=== PATIENT | male | born 1980 | race Caucasian/White ===

== ENCOUNTER 2024-01-18 22:12 | Emergency (ER) | payer OTHER, SELFPAY ==
[2024-01-18 22:21] VITALS: BP 138/93; PULSE 105; RESP 20; TEMP 36.4; O2SAT 99; BMI 32.8
--- NOTE | 2024-01-18 22:47 | XR_ITS ---
Final Report [facility] Patient ID:?[id number] Site Patient ID:?[id number]. Site :?[id number] Study:?XRay Chest 2V-01/18/2024 11:11:50 PM Ordering Physician:MUSHTAQ Final Report: INDICATION: Shortness of breath. TECHNIQUE: Chest 2 views. COMPARISON: October 12, 2019. FINDINGS: Cardiovascular and mediastinum: Heart size and vasculature are normal in caliber and appearance. Lungs and pleural spaces: Lungs are clear. No sign of infiltrate or mass. No sign of pleural effusion. No pneumothorax. Bones and soft tissues: No significant findings. IMPRESSION: No acute findings and no significant changes from the prior exam. Dictated by Lauro Hector MD @ 01/18/2024 11:19:40 PM (Electronic Signature)
--- NOTE | 2024-01-18 23:01 | ED_ITS ---
HPI - Chest Pain General Date Seen: 01/18/24 <Usmangadiel Plummer - Last Filed: 01/19/24 00:52> Chief Complaint: Chest Pain <Usman Plummer DO - Last Filed: 01/19/24 00:52> Stated Complaint: Short of breath, chest pain <Usman Roberto Elian DO - Last Filed: 01/19/24 00:52> Time Seen by Provider: 01/18/24 22:21 <Usman Plummer DO - Last Filed: 01/19/24 00:52> Source: patient <Usman Plummer DO - Last Filed: 01/19/24 00:52> Mode of arrival: ambulatory <Usman Plummer - Last Filed: 01/19/24 00:52> Limitations: no limitations <Usman Plummer DO - Last Filed: 01/19/24 00:52> History of Present Illness HPI narrative: Patient is a 43-year-old male presenting to the emergency department for chest pain and shortness of breath. He states symptoms started a couple days ago shortness of breath and shortness of breath seems to be getting worse the then started developing some midsternal chest pain. Says it felt dull in sensation. He thought it was heartburn so he took some antacids. Does but hour prior to my conversation with him he states shortly prior to me entering the room symptoms improved significantly now the pain is a 2/10. States he is not sure if he has had symptoms like this before. He is thinking is part of the to do with his anxiety as he is feeling very anxious right now and has been all day. Is no aware of any sick contacts. Denies fevers, chills, weakness, nu mbness, abdominal pain, headache, lightheadedness, dizziness, abdominal pain. Denies any other medical problems. Is a smoker but is trying to quit. No other heart or lung disorders. He is currently taking wygovy for weight loss start this 4 weeks ago. <Usman Plummer DO - Last Filed: 01/19/24 00:52> Related Data Home Medications: Home Medications Medication Instructions Recorded Confirmed citalopram .ROUTE 01/18/24 dextroamphetamine-amphetamine ER 1 cap PO BID 01/18/24 01/18/24 10 mg 24hr capsule,extend release (Adderall XR) zolpidem 10 mg tablet 10 mg PO QPM 01/18/24 01/18/24 <Usman Plummer DO - Last Filed: 01/19/24 00:52> Allergies/Adverse Reactions: Allergies Allergy/AdvReac Type Severity Reaction Status Date / Time No Known Drug Allergies Allergy Verified 01/18/24 22:26 <Usman Plummer DO - Last Filed: 01/19/24 00:52> Review of Systems Status of ROS Reports: 10 or more systems reviewed and unremarkable except as noted in History and below <Usman Plummer DO - Last Filed: 01/19/24 00:52> Exam Narrative Exam Narrative: Const: Well-nourished, Well-developed, in mild distress Eyes: PERRL, no conjunctival injection, and symmetrical lids HENT: Atraumatic external nose and ears. Moist mucous membranes. Neck: Symmetric, trachea midline, No thyromegaly. CVS: Tachycardic, No murmurs or gallops. Peripheral pulses 2+ and equal in all extremities RESP: Unlabored respiratory effort. Clear to auscultation bilaterally. GI: Nontender/Nondistended, No rebound or guarding. MSK:Extremities w/o deformity, Normal Active ROM Skin: Warm, Dry. No rashes or lesions. Neuro: Normal Muscle tone, No focal neurological deficits. Psych: Awake, Alert, & Oriented x3. Appropriate mood and affect. <Usman Plummer DO - Last Filed: 01/19/24 00:52> Const Vital Signs, click to edit/add: Vital Signs - 24 hr 01/18/24 22:21 Temperature 97.6 F Pulse Rate [Pulse Oximeter] 105 H Respiratory Rate 20 Blood Pressure [Right Upper Arm] 138/93 H Pulse Oximetry 99 Oxygen Delivery Method Room Air <Usman Plummer DO - Last Filed: 01/19/24 00:52> Vital Signs - 24 hr 01/18/24 22:21 Temperature 97.6 F Pulse Rate [Pulse Oximeter] 105 H Respiratory Rate 20 Blood Pressure [Right Upper Arm] 138/93 H Pulse Oximetry 99 Oxygen Delivery Method Room Air <Eric Torres MD - Last Filed: 01/19/24 01:49> Course Course ED Course: Dr. Torres assumed care at 1:[address] Plummer. At this time patient had presented for chest discomfort. Clinical suspicion is this is probably a panic attack. Workup so far is reassuring. Normal chest x-ray. Negative D-dimer. Nonischemic EKG and 1st troponin is negative. Dr. Plummer has written presumptive discharge instructions but wants to check a 2nd troponin to make sure NSTEMI is definitively ruled out. If 2nd troponin is negative patient can discharge home Repeat troponin came back undetectable. I a checked with the patient and discussed with the patient and his family. They are comfortable plan for discharge home. Patient suspects possible anxiety attack. Discussed return precautions especially if any more episodes of chest pain. Questions answered. Discharged as per Dr. Plummer 's plan <Eric Torres MD - Last Filed: 01/19/24 01:49> Vital Signs Vital signs: Initial Vital Signs Temperature 97.6 F 01/18/24 22:21 Temperature Source Temporal Artery Scan 01/18/24 22:21 Pulse Rate 105 H 01/18/24 22:21 Respiratory Rate 01/18/24 22:21 Blood Pressure 138/93 H 01/18/24 22:21 Blood Pressure Mean 108 H 01/18/24 22:21 Blood Pressure Position Supine 01/18/24 22:21 Pulse Oximetry 99 01/18/24 22:21 Oxygen Delivery Method Room Air 01/18/24 22:21 Vital Signs Temperature 97.6 F 01/18/24 22:21 Pulse Rate 105 H 01/18/24 22:21 Respiratory Rate 01/18/24 22:21 Blood Pressure 138/93 H 01/18/24 22:21 Pulse Oximetry 99 01/18/24 22:21 Oxygen Delivery Method Room Air 01/18/24 22:21 Temperature 97.6 F 01/18/24 22:21 Pulse Rate 105 H 01/18/24 22:21 Respiratory Rate 01/18/24 22:21 Blood Pressure 138/93 H 01/18/24 22:21 Pulse Oximetry 99 01/18/24 22:21 Oxygen Delivery Method Room Air 01/18/24 22:21 <Usman Plummer DO - Last Filed: 01/19/24 00:52> Initial Vital Signs Temperature 97.6 F 01/18/24 22:21 Temperature Source Temporal Artery Scan 01/18/24 22:21 Pulse Rate 105 H 01/18/24 22:21 Respiratory Rate 01/18/24 22:21 Blood Pressure 138/93 H 01/18/24 22:21 Blood Pressure Mean 108 H 01/18/24 22:21 Blood Pressure Position Supine 01/18/24 22:21 Pulse Oximetry 99 01/18/24 22:21 Oxygen Delivery Method Room Air 01/18/24 22:21 Vital Signs Temperature 97.6 F 01/18/24 22:21 Pulse Rate 105 H 01/18/24 22:21 Respiratory Rate 20 01/18/24 22:21 Blood Pressure 138/93 H 01/18/24 22:21 Pulse Oximetry 99 01/18/24 22:21 Oxygen Delivery Method Room Air 01/18/24 22:21 Temperature 97.6 F 01/18/24 22:21 Pulse Rate 105 H 01/18/24 22:21 Respiratory Rate 01/18/24 22:21 Blood Pressure 138/93 H 01/18/24 22:21 Pulse Oximetry 99 01/18/24 22:21 Oxygen Delivery Method Room Air 01/18/24 22:21 <Eric Torres MD - Last Filed: 01/19/24 01:49> Medications Administered Medications: Discontinued Medications Generic Name Dose Route Start Last Admin Trade Name Freq PRN Reason Stop Dose Admin Lorazepam 1 mg 01/18/24 23:00 01/18/24 23:18 Lorazepam 1 Mg Tablet PO 01/18/24 23:01 1 mg ONCE ONE Administration <Usman Plummer DO - Last Filed: 01/19/24 00:52> Discontinued Medications Generic Name Dose Route Start Last Admin Trade Name Freq PRN Reason Stop Dose Admin Lorazepam 1 mg 01/18/24 23:00 01/18/24 23:18 Lorazepam 1 Mg Tablet PO 01/18/24 23:01 1 mg ONCE ONE Administration <Eric Torres MD - Last Filed: 01/19/24 01:49> MDM - Chest Pain MDM Narrative Medical decision making narrative: Patient is a 43-year-old male presenting for shortness of breath. We will do an ACS workup including troponins and EKG. He cannot be PERCed out due to his tachycardia and a D-dimer will be ordered. Chest x-ray ordered to look for signs of pneumothorax or pneumonia. Also order COVID/flu/RSV test. BMP and CBC ordered. She states she is feeling very anxious and would like something for his anxiety so Ativan given. Patient's heart rate improved after the Ativan. His heart rate is now sitting in the 80s. He does states he feels less anxious. Still feeling mildly short of breath. The pain is not worsened. Chest x-ray reviewed myself and the radiologist showed no concerning abnormalities. D-dimer returned within normal limits in the PE seems unlikely. EKG showed no concerning findings. Initial troponin returned at 0.00. Repeat troponin will be done. This is expected to your wound the plan is to discharge him home. I am not certain what is causing chest pain but emergent in concerning findings have been ruled out <Usman Plummer, - Last Filed: 01/19/24 00:52> Lab Data Labs: Lab Results 01/18/24 01/18/24 01/19/24 Range/Units 22:47 22:55 01:00 WBC 7.97 (4.50-11.00) K/uL RBC 5.56 (4.30-5.90) m/uL Hgb 17.0 (13.5-17.5) gm/dL Hct 48.9 (37.0-53.0) % MCV 88 (80-100) fL MCH 31 (26-34) pg MCHC 35 (32-36) gm/dL RDW Coeff of Nikhil 12.3 (11.5-15.5) % Plt Count 276 (140-440) K/uL Neut % (Auto) 47.0 (42.0-72.0) % Lymph % (Auto) 39.8 (20-44) % [place] % (Auto) 10.5 (0.0-11.0) % Eos % (Auto) 2.0 (0.0-7.0) % Baso % (Auto) 0.6 (0.0-3.0) % Neut # (Auto) 3.74 (1.7-7.0) K/uL Lymph # (Auto) 3.17 H (0.90-2.90) K/uL [place] # (Auto) 0.80 (0.00-0.90) K/UL Eos # (Auto) 0.16 (0.00-0.50) K/uL Baso # (Auto) 0.05 (0.00-0.30) K/uL Abs Immat Gran (auto) 0.01 (0.00-0.30) K/uL Imm/Tot Granulo (auto) 0.1 % D-Dimer Quant (PE/DVT) 0.36 (0.00-0.50) ug/ml Sodium 136 (135-149) mmol/L Potassium 3.5 L (3.6-5.1) mmol/L Chloride 104 (96-114) mmol/L Carbon Dioxide 20 (20-32) mmol/L Anion Gap 12 (7-15) mEq/L BUN 19 (5-24) mg/dL Creatinine 0.8 (0.5-1.5) mg/dL Estimated Creat Clear 125.50 Estimated GFR 112 ml/min Glucose 145 H (60-115) mg/dL Calcium 9.0 (8.4-10.6) mg/dL SARS-CoV-2 (PCR) Negative SARS-CoV-2 (Negative) Influenza Type A (PCR) Negative PCR FLU A (Negative) Influenza Type B (PCR) Negative PCR FLU B (Negative) RSV (PCR) Negative PCR RSV (Negative) POC Troponin I 0.00 L 0.00 L (0.01-0.04) ng/ml <Usman Plummer, DO - Last Filed: 01/19/24 00:52> Lab Results 01/18/24 01/18/24 01/19/24 Range/Units 22:47 22:55 01:00 WBC 7.97 (4.50-11.00) K/uL RBC 5.56 (4.30-5.90) m/uL Hgb 17.0 (13.5-17.5) gm/dL Hct 48.9 (37.0-53.0) % MCV 88 (80-100) fL MCH 31 (26-34) pg MCHC 35 (32-36) gm/dL RDW Coeff of Nikhil 12.3 (11.5-15.5) % Plt Count 276 (140-440) K/uL Neut % (Auto) 47.0 (42.0-72.0) % Lymph % (Auto) 39.8 (20-44) % [place] % (Auto) 10.5 (0.0-11.0) % Eos % (Auto) 2.0 (0.0-7.0) % Baso % (Auto) 0.6 (0.0-3.0) % Neut # (Auto) 3.74 (1.7-7.0) K/uL Lymph # (Auto) 3.17 H (0.90-2.90) K/uL [place] # (Auto) 0.80 (0.00-0.90) K/UL Eos # (Auto) 0.16 (0.00-0.50) K/uL Baso # (Auto) 0.05 (0.00-0.30) K/uL Abs Immat Gran (auto) 0.01 (0.00-0.30) K/uL Imm/Tot Granulo (auto) 0.1 % D-Dimer Quant (PE/DVT) 0.36 (0.00-0.50) ug/ml Sodium 136 (135-149) mmol/L Potassium 3.5 L (3.6-5.1) mmol/L Chloride 104 (96-114) mmol/L Carbon Dioxide 20 (20-32) mmol/L Anion Gap 12 (7-15) mEq/L BUN 19 (5-24) mg/dL Creatinine 0.8 (0.5-1.5) mg/dL Estimated Creat Clear 125.50 Estimated GFR 112 ml/min Glucose 145 H (60-115) mg/dL Calcium 9.0 (8.4-10.6) mg/dL SARS-CoV-2 (PCR) Negative SARS-CoV-2 (Negative) Influenza Type A (PCR) Negative PCR FLU A (Negative) Influenza Type B (PCR) Negative PCR FLU B (Negative) RSV (PCR) Negative PCR RSV (Negative) POC Troponin I 0.00 L 0.00 L (0.01-0.04) ng/ml <Eric Torres MD - Last Filed: 01/19/24 01:49> Imaging Data Chest x-ray: Radiologist's impression: No acute findings and no significant changes from the prior exam. Dictated by Lauro Hector MD @ 01/18/2024 11:19:40 PM <Usman Plummer DO - Last Filed: 01/19/24 00:52> ECG Data Attestation: I personally reviewed and interpreted this ECG as follows: <Usman Plummer - Last Filed: 01/19/24 00:52> Prior ECG tracings: not available for review <Usman Plummer, Last Filed: 01/19/24 00:52> Interpretation: Sinus tachycardia at rate 1-2 beats per minute, normal intervals, normal axis, no ST or T-wave abnormality <Usman Plummer Last Filed: 01/19/24 00:52> Discharge Plan Discharge Clinical Impression: Breath shortness, Atypical chest pain <Usman Plummer - Last Filed: 01/19/24 00:52> Patient Disposition: Home, Self-Care <Usman Plummer - Last Filed: 01/19/24 00:52> Condition: Improved <Usman Plummer, Last Filed: 01/19/24 00:52> Instructions: Noncardiac Chest Pain (ED) <Usman Plummer - Last Filed: 01/19/24 00:52> Additional Instructions: Wall I cannot say for started was causing her symptoms emergent and concerning causes have been ruled out at this time. His symptoms persist follow-up with your primary care provider. If symptoms worsen or you develop new symptoms return to the emergency department. <Usman Plummer Last Filed: 01/19/24 00:52> Prescriptions: No Action citalopram [Celexa] .ROUTE dextroamphetamine-amphetamine [Adderall XR] 10 mg capsule,extended release 24hr 1 cap PO BID zolpidem 10 mg tablet 10 mg PO QPM <Usman Plummer Last Filed: 01/19/24 00:52> Follow Up/Referrals: Guera Bello PA-C [Primary Care Provider] - <Usman Plummer - Last Filed: 01/19/24 00:52> Stand Alone Forms: MyHealth Info Instructions <Usman Plummer Last Filed: 01/19/24 00:52>
[2024-01-18 23:08] VITALS: PULSE 102; O2SAT 95
[2024-01-18 23:08] LABS: Basophils Absolute Auto 0.05 K/uL (0.00-0.30); Basophils Percent Auto 0.6 % (0.0-3.0); Eosinophils Absolute Auto 0.16 K/uL (0.00-0.50); Hematocrit 48.9 % (37.0-53.0); Immature Granulocytes Abs Auto 0.01 K/uL (0.00-0.30); Immature Granulocytes Pct Auto 0.1 %; Lymphocytes Absolute Auto 3.17 K/uL (0.90-2.90); Lymphocytes Percent Auto 39.8 % (20-44); Mean Corpuscular HGB Conc 35 gm/dL (32-36); Mean Corpuscular Hemoglobin 31 pg (26-34); Mean Corpuscular Volume 88 fL (80-100); Monocytes Percent Auto 10.5 % (0.0-11.0); Neutrophils Absolute Auto 3.74 K/uL (1.7-7.0); Platelet Count* 276 K/uL (140-440); RDW Coefficient of Variation % 12.3 % (11.5-15.5); Red Blood Count 5.56 m/uL (4.30-5.90); White Blood Count* 7.97 K/uL (4.50-11.00)
[2024-01-18 23:15] VITALS: PULSE 100; O2SAT 94
[2024-01-18] MEDS: LORazepam 1 MG TABLET PO (23:18)
[2024-01-18 23:30] VITALS: PULSE 98; O2SAT 94
[2024-01-18 23:40] LABS: Chloride* 104 mmol/L (96-114); Potassium* 3.5 mmol/L (3.6-5.1); Slide Review Reflex No; Sodium* 136 mmol/L (135-149)
[2024-01-18 23:41] LABS: PCR FLU A Negative PCR FLU A (Negative); PCR FLU B Negative PCR FLU B (Negative); PCR RSV Negative PCR RSV (Negative); SARS PCR* Negative SARS-CoV-2 (Negative)
[2024-01-18 23:43] LABS: Anion Gap 12 mEq/L (7-15); Blood Urea Nitrogen* 19 mg/dL (5-24); Carbon Dioxide* 20 mmol/L (20-32); Creatinine* 0.8 mg/dL (0.5-1.5); Estimated Glomerular Filt Rate 112 ml/min; Glucose* 145 mg/dL (60-115)
[2024-01-18 23:45] VITALS: PULSE 100; O2SAT 96
[2024-01-18 23:59] LABS: D Dimer Quantitative* 0.36 ug/ml (0.00-0.50)
[2024-01-19] VITALS: PULSE 95; O2SAT 94
[2024-01-19 00:16] VITALS: PULSE 92; O2SAT 97
== END 2024-01-19 01:58 | disposition home or self-care (01) ==
PROVIDERS: Emergency Provider Student in an Organized Health Care Education/Training Program; PCP Physician Assistant Medical
DX: R07.89 Other chest pain (principal); R06.02 Shortness of breath
CPT/HCPCS: 36415; 71046; 80048; 84484; 85025; 85379; 87631; 93005; 99283; 99284; 99285; A9270